=== PATIENT | male | born 1965 | race American Indian/Alaskan Native ===

== ENCOUNTER → 2018-06-28 | Outpatient (CLI) | payer MEDICARE ==
--- NOTE | 2018-06-28 11:33 | XRay Report ---
CHEST WITH LEFT RIB DETAIL FOUR VIEWS: 06/28/18 10:53:00 CLINICAL: Left rib pain and swelling. FINDINGS: No rib fracture or rib lesion.The lungs are normally expanded and clear. No pneumothorax. Normal heart and pulmonary vasculature the lungs are clear. No pleural effusion. Normal soft tissues. IMPRESSION: Normal with no rib lesion identified.
== END | disposition home or self-care (01) ==
LOC: SPVIMAG 10:53
PROVIDERS: ATTEND Internal Medicine
DX: R07.81 Pleurodynia (principal)